=== PATIENT | female | born 1985 | race Caucasian/White ===

== ENCOUNTER 2017-02-11 00:35 | Emergency (ER) | payer SELFPAY ==
[~2017-02-11] VITALS: Ht 154.9 cm; Wt 86.0 kg
[2017-02-11 00:37] VITALS: Ht 154.9 cm; Wt 86.0 kg
[2017-02-11] MEDS ORDERED: HYDROCODONE/APAP (5/325) TAB PO ONE (01:30)
--- NOTE | 2017-02-11 01:40 | ERD ---
ER Documentation Chief Complaint Chief Complaint c/o right ear pain x 2 days. Denies any drainage. HPI This is a 31-year-old female who presents with right ear pain for 2 days. She is not sure if it is secondary to her ear are secondary to dental pain. She has not seen a dentist. No fever. She took Motrin but has not helped. No bleeding or drainage from the ear. No cough. ROS All systems reviewed and are negative except as per history of present illness. Medications Home Meds No Active Prescriptions or Reported Meds Allergies Allergies: Coded Allergies: No Known Allergy (Unverified , 07/31/12) PMhx/Soc Medical and Surgical Hx: pt denies Medical Hx, pt denies Surgical Hx History of Surgery: No Anesthesia Reaction: No Hx Neurological Disorder: No Hx Respiratory Disorders: No Hx Cardiac Disorders: No Hx Psychiatric Problems: No Hx Miscellaneous Medical Probl: No Hx Alcohol Use: No Hx Substance Use: No Hx Tobacco Use: No Smoking Status: Never smoker FmHx Family History: No diabetes Physical Exam Vitals Vital Signs Date Time Temp Pulse Resp B/P Pulse Ox O2 Delivery O2 Flow Rate FiO2 02/11/17 00:37 97.6 69 18 136/89 100 Physical Exam INITIAL VITAL SIGNS: Reviewed by me GENERAL: Awake, alert and oriented x 4, well appearing, nontoxic, speaking in full sentences. No acute distress HEAD: Atraumatic NECK: Supple. No masses. Full range of motion. No meningismus. No midline tenderness. EYES: EOMI. PERRL. EAR: No tenderness over the mastoids bilaterally. No exudates in the canals. TMs nonerythematous. NOSE: Normal nose. THROAT: No tonilar erythema or edema. No exudates. Uvula midline. No kissing tonsils. Multiple dental caries, poor dentition RESPIRATORY: Clear to auscultation bilaterally. Symmetric chest wall rise. No wheezing or rales. No accessory muscle use. CV: Regular rate and rhythm. No murmurs, rubs, or gallops. Results 24 hrs Current Medications Medications (Trade) Dose Ordered Sig/Franco Route PRN Reason Start Time Stop Time Status Last Admin Dose Admin Acetaminophen/ Hydrocodone Bitart ([place] (5/325)) 1 tab ONCE ONCE PO 02/11/17 01:30 02/11/17 01:31 DC 02/11/17 01:15 Procedures/MDM Patient has earache without infection. It may be coming secondary to her dental caries and poor dentition. She has not yet seen the dentist. Differential diagnosis includes otalgia versus trigeminal neuralgia versus dental pain versus TMJ. She will be given a prescription for ibuprofen [place] and amoxicillin as well as outpatient dental referral. Patient counseled regarding my diagnostic impression and care plan. Prior to discharge all questions answered. Pt agrees with treatment plan and understands strict return precautions. Pt is instructed to follow up with primary care provider within 24- 48 hours. Precautionary instructions provided including instructions to return to the ER if not improving or for any worsening or changing symptoms or concerns. Departure Diagnosis: Primary Impression: Pain, dental Condition: Stable TINA CARRANZA PA-C Feb 11, 2017 01:40
[2017-02-11] MEDS ORDERED: IBUP800T25 PO (01:41)
[2017-02-11] MEDS ORDERED: AMOX500C2 PO (01:41)
[2017-02-11] MEDS ORDERED: HYDR-906 PO (01:41)
== END 2017-02-11 02:00 | disposition home or self-care (01) ==
LOC: FTE 00:35
DX: K08.89 Other specified disorders of teeth and supporting structures (principal)
CPT/HCPCS: 99283

== ENCOUNTER 2018-04-12 07:41 | Emergency (ER) | payer MEDICAID ==
[~2018-04-12] VITALS: Ht 160 cm; Wt 90.7 kg
[~2018-04-12 07:41] MED LIST: AMOX500C2 PO; HYDR-4011 PO; IBUP800T48 PO
[2018-04-12 07:44] VITALS: BP 126/83; PULSE 74; RESP 18; Ht 160 cm; Wt 90.7 kg
[2018-04-12] MEDS ORDERED: NPH10OT LEFT EAR (08:11)
[2018-04-12] MEDS ORDERED: IBUP-1542 PO (08:11)
[2018-04-12] MEDS ORDERED: IBUPROFEN 600 MG TAB PO ONE (08:30)
--- NOTE | 2018-04-12 08:31 | ERD ---
ER Documentation Chief Complaint Chief Complaint left ear pain x2 days, feels like something inside x4 days HPI 32-year-old female present ED reporting that she felt something stuck in her left ear for the last 4 days. She started using [id number] ear drops without relief. Reports intense left ear pain for the last 2 days, with associated decreased hearing in the left ear. Patient states that she uses Q- tips inside her ears. Denies fever or chills. Denies drainage from the ears. Denies nasal congestion. ROS All systems reviewed and are negative except as per history of present illness. Medications Home Meds Active Scripts Ibuprofen* (Motrin*) 600 Mg Tab, 600 MG PO Q6H PRN for PAIN AND OR ELEVATED TEMP, #30 TAB Prov:AARON KAMARA CAR USHER 04/12/18 Neomycin/Polymyxin/Hydrocort* (Cortisporin* Otic) 10 Ml Susp, 4 DROP LEFT EAR QID for 7 Days, EA Prov:AARON KAMARA CAR USHER 04/12/18 Hydrocodone/Acetaminophen ([place] 5-325 Tablet) 1 Each Tablet, 1 TAB PO Q6H PRN for PAIN, #20 TAB Prov:TINA CARRANZA PA-C 02/11/17 Ibuprofen* (Motrin*) 800 Mg Tab, 800 MG PO Q6, #30 TAB Prov:TINA CARRANZA PA-C 02/11/17 Amoxicillin* (Amoxicillin*) 500 Mg Cap, 500 MG PO BID for 7 Days, CAP Prov:TINA CARRANZA PA-C 02/11/17 Allergies Allergies: Coded Allergies: No Known Allergy (Unverified , 07/31/12) PMhx/Soc History of Surgery: No Anesthesia Reaction: No Hx Neurological Disorder: No Hx Respiratory Disorders: No Hx Cardiac Disorders: No Hx Psychiatric Problems: No Hx Miscellaneous Medical Probl: No Hx Alcohol Use: No Hx Substance Use: No Hx Tobacco Use: No Physical Exam Vitals Vital Signs Date Temp Pulse Resp B/P (MAP) Pulse Ox O2 O2 Flow FiO2 Time Delivery Rate 04/12/18 98.2 74 18 126/83 96 07:44 (97) Physical Exam General: Well-developed, well-nourished, conscious and coherent, in no distress Skin: Warm and dry without rash, good texture and turgor Head: Normocephalic without evidence of trauma Eyes: Sclera and conjunctivae normal; pupils equal, round, and reactive to light; extraocular movements are intact Ears: Right canal patent, tympanic membrane clear. Left canal diffusely erythematous and swollen, cerumen impaction noted, left TM not visualized. Left tragal tenderness, without mastoid tenderness Nose/Face: Without rhinorrhea Chest: Normal AP diameter. Good expansion without retractions. Nontender. Lungs are clear to auscultate bilaterally with good tidal volume Heart: Regular rate and rhythm. No murmur, rub, or gallops heard Extremities: Full range of motion. Good strength bilaterally. No erythema, ecchymosis, or edema. Peripheral pulses are intact. Sensation intact Neuro: Alert and oriented 4, GCS 15. Results 24 hrs Current Medications Medications Dose Sig/Franco Start Time Status Last (Trade) Ordered Route PRN Stop Time Admin Dose Reason Admin Ibuprofen 600 mg ONCE ONCE 04/12/18 04/12/18 (Motrin) PO 08:30 04/12/18 08:09 08:31 Procedures/MDM Procedure note: Removal of impacted cerumen Small amount of cerumen and a small cotton ball was removed with both irrigation and curette by me. Ear canal is not clear, able to visualize TM through the cerumen. Patient reports improvement in hearing after the procedure. Patient presents with acute otitis externa, likely secondary to retained foreign body in the left ear canal. The foreign body was removed in the ED. No sign of mastoiditis. Patient appears well, stable for discharge and outpatient management. Medical decision making shared with patient and family. Education provided to patient and family. Patient and family expressed understanding of the plan. Medications on discharge: Ibuprofen, Cortisporin Otic. Follow-up: Primary care provider in 2-3 days or return to ED if worse. Disclaimer: Inadvertent spelling and grammatical errors are likely due to EHR/dictation software use and do not reflect on the overall quality of patient care. Also, please note that the electronic time recorded on this note does not necessarily reflect the actual time of the patient encounter. Departure Diagnosis: Primary Impression: Left ear pain Additional Impressions: Otitis externa Otitis externa type: diffuse Chronicity: acute Laterality: left Qualified Codes: H60.312 - Diffuse otitis externa, left ear Cerumen impaction Laterality: left Qualified Codes: H61.22 - Impacted cerumen, left ear Condition: Stable Patient Instructions: Cerumen Impaction, Home Care, External Ear Infection (Adult) Referrals: [facility] YOU HAVE RECEIVED A MEDICAL SCREENING EXAM AND THE RESULTS INDICATE THAT YOU DO NOT HAVE A CONDITION THAT REQUIRES URGENT TREATMENT IN THE EMERGENCY DEPARTMENT. FURTHER EVALUATION AND TREATMENT OF YOUR CONDITION CAN WAIT UNTIL YOU ARE SEEN IN YOUR DOCTORS OFFICE WITHIN THE NEXT 1-2 DAYS. IT IS YOUR RESPONSIBILITY TO MAKE AN APPOINTMENT FOR FOLOW-UP CARE. IF YOU HAVE A PRIMARY DOCTOR --you should call your primary doctor and schedule an appointment IF YOU DO NOT HAVE A PRIMARY DOCTOR YOU CAN CALL OUR PHYSICIAN REFERRAL HOTLINE AT IF YOU CAN NOT AFFORD TO SEE A PHYSICIAN YOU CAN CHOSE FROM THE FOLLOWING [facility] [address] [facility]. [facility] [address] [facility] [facility] [address] [facility] [facility] [address] [facility]. [facility] [address]. [facility]. [address] Additional Instructions: Call your primary care doctor TOMORROW for an appointment during the next 2-3 days.See the doctor sooner or return here if your condition worsens before your appointment time. AARON KAMARA NP Apr 12, 2018 08:31
== END 2018-04-12 08:52 | disposition home or self-care (01) ==
LOC: FTE 07:41
DX: H60.312 Diffuse otitis externa, left ear (principal); H61.22 Impacted cerumen, left ear; R40.2412 Glasgow coma scale score 13-15, at arrival to emergency department
CPT/HCPCS: 69210; Z7502; Z7610